=== PATIENT | male | born 1960 | race African-American/Black ===

== ENCOUNTER 2018-12-10 10:05 | Emergency (ER) | payer SELFPAY ==
[~2018-12-10] VITALS: Ht 172.7 cm; Wt 95.0 kg
[2018-12-10 10:08] VITALS: BP 165/95
== END 2018-12-10 10:45 | disposition left against medical advice (07) ==
LOC: ER 10:05
DX: H54.8 Legal blindness, as defined in USA (principal); F17.200 Nicotine dependence, unspecified, uncomplicated; W18.39XA Other fall on same level, initial encounter; Y93.89 Activity, other specified; Y92.89 Other specified places as the place of occurrence of the external cause; Y99.8 Other external cause status
CPT/HCPCS: 99283